=== PATIENT | female | born 1975 | race Caucasian/White ===

== ENCOUNTER 2020-05-17 09:33 | Emergency (ER) | payer OTHER, SELFPAY ==
[2020-05-17 09:41] VITALS: BP 95/61; PULSE 83; RESP 16; TEMP 36.4; O2SAT 99; BMI 22.3
--- NOTE | 2020-05-17 09:52 | ED_ITS ---
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 Complaint: extremity pain and extremity swelling Onset (ago): day(s) Pain Consistency: constant Location: right, upper extremity and elbow Severity scale (1-10): 6 Quality: aching Radiation: proximal and distal Relieving factors: nothing Exacerbating factors: range of motion Associated symptoms: Reports no associated symptoms; Deny chest pain, fever(s) or rash Review of Systems Const: Denies: fever(s), chills or body aches Eyes: Denies: change in vision or blurry vision ENMT: Denies: throat pain or nasal congestion Card: Denies: chest pain or dyspnea on exertion Resp: Denies: dyspnea, productive cough or non-productive cough GI: Denies: abdominal pain, nausea or vomiting Musc: Reports: extremity pain (Patient states that her right arm started swelling last night. Said she feels she has a pulled muscle from work. Patient has redness to the area and then also has a couple areas that she has been itching for the last month or 2 on her distal forearm that she thinks is poison nathan and she keeps itching them daily) Skin/Breast: Denies: rash Neuro: Denies: headache(s) Psych: Denies: anxiety or depression Ryland/Lymph: Denies: easy bruising [facility] ED Female Reproductive History: Date of last menstrual period: 05/17/20 Physical Exam Const: COMMON NORMALS: no acute distress, average body habitus and patient oriented x3 HENMT: COMMON NORMALS: normocephalic HEAD & SCALP: normal to inspection and normocephalic FACE & SINUS: normal facial exam Eye: COMMON NORMALS: conjunctivae normal GENERAL EYE: appearance normal, both eyes and all related structures CONJUNCTIVA: Yes conjunctivae normal Neck/C-Spine: COMMON NORMALS: no JVD Chest: COMMONS NORMALS: normal inspection of the chest Resp: COMMON NORMALS: normal respiratory effort and clear to auscultation bilaterally AUSCULTATION: clear to auscultation bilaterally Cardio: COMMON NORMALS: no JVD, regular rate and regular rhythm RATE: regular rate RHYTHM: regular rhythm GI: COMMON NORMALS: Normal to inspection, nondistended, normoactive bowel sounds present Extremity: COMMON NORMALS: full ROM RIGHT UPPER EXTREMITY: Yes upper arm, Yes elbow joint and Yes lower arm (The patient has redness erythema from the right middle forearm to the proximal mid humerus area appears to be on the lateral aspect arm is swollen hot to the touch and then on the distal forearm she has a couple areas that could resemble a psoriasis type plaque that open wound scratch appears that she has an infection/L ileitis going on distal neurovascular is intact she has full range of motion the arm) Neuro: COMMON NORMALS: patient oriented x3 Course Vital Signs: Vital signs: Vital Signs Temperature 97.6 F 05/17/20 09:41 Pulse Rate 83 05/17/20 09:41 Respiratory Rate 16 05/17/20 09:41 Blood Pressure 95/61 05/17/20 09:41 Pulse Oximetry 99 05/17/20 09:41 MDM - Extremity (Nontraumatic) MDM Narrative: Medical decision making narrative: She might have a pulled muscle or tendinitis in her right arm but I suspect a cellulitis based on clinical presentation will treat for cellulitis and put her off work for a few days allowed to heal up Is a possibility she had a reaction to the lidocaine patch but that was only on the upper arm and not down to the mid of the forearm but it was wrapped with an Geoff wrap on top of the lidocaine patch Discharge Plan Discharge Patient Disposition: Home Clinical Impression: Cellulitis Qualifiers: Site of cellulitis: extremity Site of cellulitis of extremity: upper extremity Laterality: right Qualified Code(s): L03.113 - Cellulitis of right upper limb Condition: Stable Prescriptions: New tramadol 50 mg tablet 50 mg PO Q6H PRN (Reason: pain) Qty: 14 RF: 0 Bactrim DS 800-160 mg tablet 1 tab PO BID 10 Days Qty: 20 RF: 0 Discharge Diet: Usual diet Discharge Activity: Increase activity as tolerated Patient Instructions: Cellulitis (ED) Activity Restrictions/Additional Instructions: Follow-up with medical provider as directed. Take medications as prescribed. Return to the ER or your medical provider if condition worsens. Please read and understand discharge instructions. If any questions ask please. Stand Alone Forms: Work/School Release Coding Level of Care Code ED Clinical Marketing Manager for Chg Fwd Exam Comprehensive
[2020-05-17] MEDS: HYDROcodone-acetaminophen 5-325 mg Tablet 1 TAB PO (10:29)
[2020-05-17] MEDS: water for injection-sterile 10 ML 2.1 ML (10:30)
[2020-05-17] MEDS: cefTRIAXone 1,000 mg SDV 1000 MG IM (10:30)
[2020-05-17 10:32] VITALS: BP 93/66; PULSE 83; RESP 18; O2SAT 99
[2020-05-17 10:59] VITALS: BP 96/66; PULSE 81; RESP 17; O2SAT 99
== END 2020-05-17 10:50 | disposition home or self-care (01) ==
PROVIDERS: Emergency Provider Nurse Practitioner Family
DX: L03.113 Cellulitis of right upper limb (principal)
CPT/HCPCS: 12345; 96372; 99281; 99283; J0696

== ENCOUNTER 2020-06-01 15:18 | Emergency (ER) | payer SELFPAY ==
--- NOTE | 2020-06-01 15:28 | ED_ITS ---
HPI - Skin/Abscess/Foreign Bdy General: Chief complaint: Skin/Abscess/Foreign Body Stated complaint: RIGHT ARM WOUND Time Seen by Provider: 06/01/20 15:20 History of Present Illness: HPI narrative: 44-year-old female patient presents to the emergency department with right antecubital swelling due to abscess. She reports previous abscess with use of antibiotics, reports abscess was drained, no packing placed. Reports draining stopped and now has increased in swelling. She denies fever chills. She reports pain with bending movement of the right arm at the antecubital space. Reports last dose of clindamycin this morning. complaint: abscess/boil (Right AC) Onset (ago): day(s) (2) Tetanus up to date: yes Location: RUE Severity: mild Severity scale (1-10): 3 Quality: aching Pain Consistency: intermittent Relieving factors: immobilization Exacerbating factors: movement Context: none Associated symptoms: Reports no associated symptoms; Deny chills, fever(s), nausea or vomiting Treatments prior to arrival: antibiotic (Has now completed antibiotics) Review of Systems General: Reports: 10 or more systems reviewed and unremarkable except in HPI and below Const: Denies: fever(s), chills or diaphoresis Eyes: Denies: blurry vision or eye redness ENMT: Denies: throat pain, dental pain or disequilibrium Card: Denies: chest pain, palpitations or irregular heart rhythm Resp: Denies: dyspnea, productive cough, non-productive cough or wheezing GI: Denies: abdominal pain, nausea or vomiting : Denies: difficulty voiding or dysuria Musc: Denies: back pain Skin/Breast: Reports: erythema, skin tenderness (Right AC) and non-healing lesions (Right antecubital); Denies: rash or pruritus Neuro: Denies: headache(s), weakness in extremities or behavioral changes Ryland/Lymph: Denies: easy bruising PFSH ED PFSH: Social History Smoking and tobacco status: never smoked Female Reproductive History: Date of last menstrual period: 05/17/20 Physical Exam Const: COMMON NORMALS: no acute distress, patient oriented x3, healthy appearing and alert GENERAL APPEARANCE: cooperative, comfortable and well hydrated HENMT: COMMON NORMALS: normocephalic, Normal external nose present and moist oral mucous membranes HEAD & SCALP: normocephalic NOSE: Normal external nose present Eye: COMMON NORMALS: Equal, round and reactive pupils present and EOMs intact bilaterally GENERAL EYE: appearance normal, both eyes and all related structures PUPIL: Yes Equal, round and reactive pupils present Neck/C-Spine: COMMON NORMALS: full ROM and no lymphadenopathy GENERAL: Yes normal visual inspection and Yes trachea midline CERVICAL SPINE: Yes cervical ROM normal Lymph: LYMPHATIC: no lymphadenopathy noted Chest: COMMONS NORMALS: normal inspection of the chest Resp: COMMON NORMALS: normal respiratory effort and clear to auscultation bilaterally EFFORT & INSPECTION: Yes able to speak in complete sentences AUSCULTATION: clear to auscultation bilaterally Cardio: COMMON NORMALS: regular rhythm, S1 normal heart sound present, S2 normal heart sound present and Peripheral pulses 2+ throughout RHYTHM: regular rhythm HEART SOUNDS: S1 normal heart sound present and S2 normal heart sound present PERIPHERAL PULSES: Peripheral pulses 2+ throughout GI: COMMON NORMALS: Soft to palpation and non-tender INSPECTION: Yes normal to inspection PALPATION: Yes Soft to palpation : COMMON NORMALS: Yes no CVA tenderness BLADDER/KIDNEY EXAM: Yes no CVA tenderness Back/Pelvis: COMMON NORMALS: no CVA tenderness and thoracic and lumbar spine normal to inspection Extremity: COMMON NORMALS: normal to inspection and capillary refill normal Neuro: COMMON NORMALS: patient oriented x3 and no focal motor deficits SENSORIUM/ORIENTATION: Yes alert Psych: COMMON NORMALS: mental status grossly normal, Normal thought process present and cooperative ACTIVITY/MOTOR BEHAVIOR: Yes appropriate eye contact THOUGHT PROCESS: Normal thought process present Skin: COMMON NORMALS: turgor normal GENERAL SKIN EXAM: turgor normal WOUNDS: Yes wounds noted (Abscess to the right antecubital area, 3 cm x 3 cm indurated with fluctuance) OTHER: Negative cellulitis, negative tracking, negative lymphadenitis Procedures Abscess I/D Site: upper extremity (Right antecubital) Side (if applicable): right Local Anesthetic: lidocaine 1% and with epi Amount of anesthesia used (mL): 3 Technique: incised with #11 blade (with sero-purulent drainage) Amount of fluid expressed (mL): 10 Irrigation: Yes Packing used?: plain Course Vital Signs: Vital signs: Vital Signs Temperature 98.2 F 06/01/20 15:33 Pulse Rate 109 H 06/01/20 16:10 Respiratory Rate 16 06/01/20 16:10 Blood Pressure 115/81 06/01/20 16:10 Pulse Oximetry 99 06/01/20 16:10 Discharge Plan Discharge Patient Disposition: Home Clinical Impression: MRSA cellulitis Abscess of skin or subcutaneous tissue Qualifiers: Site of cutaneous abscess: extremity Site of cutaneous abscess of extremity: upper extremity Laterality: right Qualified Code(s): L02.413 - Cutaneous abscess of right upper limb Condition: Stable Prescriptions: New Bactrim DS 800-160 mg tablet 1 tab PO BID 7 Days Qty: 14 RF: 0 Discontinued clindamycin HCl 300 mg capsule 300 mg PO TID Qty: 20 RF: 0 No Action mupirocin 2 % ointment 1 applic TOPICAL BID Qty: 15 RF: 0 tramadol 50 mg tablet 50 mg PO Q6H PRN (Reason: pain) Qty: 14 RF: 0 Discharge Orders: Discharge Order (Routine); Ordered 06/01/20 Ordered By: Josey Huang Discharge Diet: Usual diet Discharge Activity: Resume usual activity Patient Instructions: Methicillin Resistant Staphylococcus Aureus (ED), Abscess Incision and Drainage (ED) Activity Restrictions/Additional Instructions: Stop clindamycin Take Bactrim DS 1 p.o. twice daily until all gone May remove packing on Friday, keep covered, drainage is to be expected Follow-up with your primary care provider next week for recheck, social media assistant will be contacting you for primary care follow-up. If you develop tracking, red streaking up your arm, you will need to return to the emergency department for further evaluation You develop fever chills nausea vomiting, inability to keep fluids down, you will need to return for evaluation Wash hands after touching the area Discharge Date/Time: 06/01/20 16:11 Coding Level of Care Code ED Order Fulfillment Specialist for Chg Fwd Exam Comprehensive
[2020-06-01 15:33] VITALS: BP 116/85; PULSE 98; RESP 16; TEMP 36.8; O2SAT 98; BMI 23.1
[2020-06-01 15:42] VITALS: PULSE 105; RESP 16; O2SAT 99
[2020-06-01 16:10] VITALS: BP 115/81; PULSE 109; RESP 16; O2SAT 99
--- NOTE | 2020-06-06 15:53 | DCPLANNER ---
mine engineering manager had message to speak with patient about getting established with a primary care physician. mine engineering manager unable to speak with patient at this time, a voicemail was left for patient to return director of casework phone call.
== END 2020-06-01 16:11 | disposition home or self-care (01) ==
PROVIDERS: Emergency Provider Nurse Practitioner Family
DX: L02.413 Cutaneous abscess of right upper limb (principal); L03.113 Cellulitis of right upper limb; B95.62 Methicillin resistant Staphylococcus aureus infection as the cause of diseases classified elsewhere
CPT/HCPCS: 10060; 12345; 99283

== ENCOUNTER 2020-06-09 16:38 | Emergency (ER) | payer SELFPAY ==
[2020-06-09 16:41] VITALS: BP 98/68; PULSE 83; RESP 18; TEMP 37.1; O2SAT 99; BMI 22.3
--- NOTE | 2020-06-09 17:18 | W.ED.WOUNDLC ---
HPI - Wound/Laceration General: Chief Complaint: Wound/Laceration Stated Complaint: abcess Time Seen by Provider: 06/09/20 17:18 History of Present Illness: HPI narrative: Patient is a 44-year-old female comes to the ED with an abscess on her right elbow. Patient says abscess started approximately 3-1/2 weeks ago. Patient had it lanced back on June 01 and since has been put on 2 rounds of Bactrim and 1 round of clindamycin. She took her last dose of Bactrim today. Still has a pea size abscess on right elbow. She does say that it is greatly improved since it was first treated. The erythema or on her right arm has completely went away. And the pain of it has decreased dramatically. Associated symptoms: Denies chills, fever(s), nausea or vomiting Review of Systems Const: Denies: fever(s), chills or fatigue Eyes: Denies: change in vision or eye discomfort ENMT: Denies: throat pain, odynophagia, nasal discharge or nasal congestion Card: Denies: chest pain, palpitations, edema, swelling of feet/ankles, dyspnea on exertion or orthopnea Resp: Denies: dyspnea, productive cough or non-productive cough GI: Denies: abdominal pain, nausea, vomiting, diarrhea, constipation or hematochezia : Denies: flank pain, dysuria or hematuria Musc: Denies: neck pain, back pain or extremity swelling Skin/Breast: Reports: new lesions (Abscess on right elbow); Denies: rash Neuro: Denies: headache(s), numbness in extremities or weakness in extremities PFS ED PFSH: Social History Smoking and tobacco status: never smoked Female Reproductive History: Date of last menstrual period: 05/17/20 Physical Exam Const: COMMON NORMALS: no acute distress, patient oriented x3 and alert GENERAL APPEARANCE: cooperative and comfortable HENMT: COMMON NORMALS: normocephalic HEAD & SCALP: normocephalic MOUTH: Normal oral and palatal mucosa present THROAT: posterior oropharynx normal and uvula midline Neck/C-Spine: COMMON NORMALS: supple GENERAL: Yes normal visual inspection Resp: COMMON NORMALS: normal respiratory effort, No retractions, No use of accessory muscles and clear to auscultation bilaterally AUSCULTATION: clear to auscultation bilaterally Cardio: COMMON NORMALS: regular rate, regular rhythm, S1 normal heart sound present, S2 normal heart sound present, No gallops present (Cardio), No clicks present (Cardio), No murmurs present (Cardio) and Peripheral pulses 2+ throughout RATE: regular rate RHYTHM: regular rhythm HEART SOUNDS: S1 normal heart sound present and S2 normal heart sound present PERIPHERAL PULSES: Peripheral pulses 2+ throughout GI: COMMON NORMALS: Normal to inspection, nondistended, normoactive bowel sounds present, Soft to palpation, non-tender and no masses PALPATION: Yes Soft to palpation : COMMON NORMALS: Yes no CVA tenderness BLADDER/KIDNEY EXAM: Yes no CVA tenderness Back/Pelvis: COMMON NORMALS: no CVA tenderness Extremity: NARRATIVE EXTREMITY EXAM: Patient has small approximately 1 cm abscess on right elbow. Is nontender, fluctuant and has a scar from being incised recently. No erythema warmth around abscess. GENERAL: Yes normal exam except as noted Neuro: COMMON NORMALS: patient oriented x3 and moves all extremities SENSORIUM/ORIENTATION: Yes alert Skin: NARRATIVE SKIN EXAM: Patient has small approximately 1 cm abscess on right elbow. Is nontender, fluctuant nodule and has a scar from being incised recently. No active purulent drainage seen. no erythema warmth around abscess. GENERAL SKIN EXAM: dry skin Procedures Abscess I/D Site: upper extremity Side (if applicable): right Local Anesthetic: lidocaine 1% and with epi Amount of anesthesia used (mL): 10 Technique: incised with #11 blade Amount of fluid expressed (mL): 1 (All blood, no purulent drainage.) Irrigation: No Packing used?: none Course Vital Signs: Vital signs: Vital Signs Temperature 98.8 F 06/09/20 16:41 Pulse Rate 68 06/09/20 18:59 Respiratory Rate 18 06/09/20 18:59 Blood Pressure 128/67 06/09/20 18:59 Pulse Oximetry 96 06/09/20 18:59 MDM - Wound/Laceration MDM Narrative: Medical decision making narrative: Patient is a 44-year-old female comes to the ED with an abscess on right elbow. She has been treated for this previously on June 01. She is been on 1 round of clindamycin and 2 rounds of Bactrim. Exam shows 1 cm fluctuant nodule with no surrounding erythema or warmth. No active purulent drainage seen. I performed an I&D and only blood came out and no purulent drainage. Patient was discharged and put on 5 more days of Bactrim. Return to ED precautions given. Follow-up with PCP in 7 to 10 days. Patient understood and agreed with plan. Discharge Plan Discharge Patient Disposition: Home Clinical Impression: Abscess Condition: Stable Prescriptions: New Bactrim DS 800-160 mg tablet 1 tab PO BID 5 Days Qty: 10 RF: 0 No Action mupirocin 2 % ointment 1 applic TOPICAL BID Qty: 15 RF: 0 tramadol 50 mg tablet 50 mg PO Q6H PRN (Reason: pain) Qty: 14 RF: 0 Discharge Orders: Discharge Order (Routine); Ordered 06/09/20 Ordered By: Leandro Pierre Discharge Diet: Regular Discharge Activity: Resume usual activity Patient Instructions: Abscess Incision and Drainage (ED), Abscess (ED) Activity Restrictions/Additional Instructions: Follow-up with medical provider as directed in 7-10 days. Take medications as prescribed. Return to the ER or your medical provider if condition worsens. Please read and understand discharge instructions. If any questions, please ask. Discharge Date/Time: 06/09/20 19:01 Coding Level of Care Code ED Dump Motor Operator for Satnam Ford Exam Comprehensive
--- NOTE | 2020-06-09 18:57 | PC.NURSE ---
ABSCESS TO RIGHT AC LANCED AND DRAINED PER JOSE FERNÁNDEZ SITE ENGINEER. PACKED WITH 1 INCH PACKING STRIP, COVERED WITH 4X4'S ET SECURED WITH TAPE.
[2020-06-09 18:59] VITALS: BP 128/67; PULSE 68; RESP 18; O2SAT 96
== END 2020-06-09 19:01 | disposition home or self-care (01) ==
PROVIDERS: Emergency Provider Physician Assistant
DX: L02.413 Cutaneous abscess of right upper limb (principal)
CPT/HCPCS: 10060; 12345; 99281; 99283

== ENCOUNTER → 2020-06-15 14:51 | Outpatient (BNVA) | payer SELFPAY | PROVIDERS: Visit Provider Family Medicine Adult Medicine | DX: R53.83 Other fatigue (principal) | CPT/HCPCS: 80053; 84439; 84443; 85007; 85027 ==

== ENCOUNTER 2021-11-16 12:52 | Emergency (ER) | payer SELFPAY ==
--- NOTE | 2021-11-16 12:57 | PC.NURSE ---
pt arrives via [facility] for a blood draw for DWI investigation
--- NOTE | 2021-11-16 13:04 | ED_ITS ---
HPI - Recheck/Abnormal Lab/Rx General: Chief Complaint: Recheck/Abnormal Lab/Rx Stated Complaint: BLOOD DRAW Time Seen by Provider: 11/16/21 12:57 Source: patient and police Mode of arrival: other (police) Limitations: no limitations History of Present Illness: Patient is a 46-year-old female presents to the ED today for lab draw/drug testing due to suspicion while driving under the influence. Patient arrives in police custody and the prec[place] police sergeant tells me she was pulled over for dangerous and reckless driving. He had a suspicion that she was under the influence of drugs. Patient reportedly told the officer that she had used methamphetamine a few hours prior. Patient has no physical complaints at this time. Plan will be for patient to be released back into police custody. complaint: other (lab draw/blood testing) Review of Systems General: Reports: 10 or more systems reviewed and unremarkable except in HPI and below PFSH ED PFSH: Medical History Decreased glomerular filtration rate (GFR) Surgical History Hx of tubal ligation Family History Other Cancer Social History Smoking and tobacco status: never smoked Alcohol intake: current Alcohol intake frequency: few times a month Female Reproductive History: Date of last menstrual period: 05/17/20 Physical Exam Narrative: EXAM NARRATIVE: Patient has no physical complaints at this time. Const: COMMON NORMALS: no acute distress, patient oriented x3, no limitations and alert GENERAL APPEARANCE: cooperative ORIENTATION/CONSCIOUSNESS: Yes awake, Yes oriented to person, Yes oriented to place and Yes oriented to time Neuro: COMMON NORMALS: patient oriented x3 SENSORIUM/ORIENTATION: Yes alert, Yes oriented to person, Yes oriented to place and Yes oriented to time MDM - Recheck/Abnormal Lab/Rx Medical Decision Making Patient was arrested for reckless and endanger driving. There was no car accident. Patient has no physical complaints at this time. Lab draw completed and patient will be released back into police custody. Discharge Plan Discharge Patient Disposition: Home Clinical Impression: Blood drug testing for medicolegal reasons Condition: Stable Prescriptions: No Action methylprednisolone [Medrol (Joey)] 4 mg tablets,dose pack See Rx Instructions PO PER PKG DIR 5 Days Qty: 21 0RF Rx Instructions: PO PER PKG DIR Discharge Orders: Discharge ED (Routine); Ordered 11/16/21 Ordered By: Ivett Echevarria Coding Level of Care Code ED Construction Rigger for Satnam Ford
== END 2021-11-16 13:15 | disposition home or self-care (01) ==
PROVIDERS: Emergency Provider Physician Assistant
DX: Z02.83 Encounter for blood-alcohol and blood-drug test (principal)
CPT/HCPCS: 99281

== ENCOUNTER 2022-03-27 22:15 | Emergency (ER) | payer SELFPAY ==
--- NOTE | 2022-03-27 22:17 | XRR_ITS ---
PROCEDURE INFORMATION: Exam: XR Chest Exam date and time: 03/27/2022 11:10 PM Age: 46 years old Clinical indication: Shortness of breath; Additional info: SOB TECHNIQUE: Imaging protocol: Radiologic exam of the chest. Views: 1 view. COMPARISON: No relevant prior studies available. FINDINGS: Lungs: There are normal lung volumes without interstitial or airspace opacities. Pleural spaces: There are no pleural effusions or pneumothorax. Heart/Mediastinum: The heart size is normal. The pulmonary vasculature is normal. There is a mildly tortuous thoracic aorta. The trachea is in the midline. Bones/joints: No acute abnormalities. XR/XR chest 1V portable [id number] IMPRESSION: No AP view chest radiographic evidence of acute cardiopulmonary disease.
[2022-03-27 22:30] VITALS: BP 112/83; PULSE 98; RESP 20; TEMP 36.8; O2SAT 98
--- NOTE | 2022-03-27 23:23 | ED_ITS ---
HPI - COVID General: Chief Complaint: COVID symptoms Stated Complaint: SOB, Covid + Time Seen by Provider: 03/27/22 23:23 History of Present Illness: 46-year-old female comes in today for complaints of positive COVID test at work from [facility]. Patient reports feeling ill last night today having shortness of breath. Patient appears mildly unwell but not toxic. Patient appears in no acute distress. Patient appears in no pain. COVID 19 common symptoms: positive dyspnea and headache(s) COVID Results: No Data to Display Review of Systems Const: Reports: malaise Resp: Reports: dyspnea Neuro: Reports: headache(s) PFSH ED PFSH: Medical History Decreased glomerular filtration rate (GFR) Surgical History Hx of tubal ligation Family History Other Cancer Social History Smoking and tobacco status: never smoked Alcohol intake: current Alcohol intake frequency: few times a month Female Reproductive History: Date of last menstrual period: 05/17/20 Physical Exam Const: COMMON NORMALS: alert HENMT: NOSE: Nasal discharge present Neck/C-Spine: COMMON NORMALS: no meningeal signs Resp: COMMON NORMALS: normal respiratory effort and clear to auscultation bilaterally AUSCULTATION: clear to auscultation bilaterally Cardio: COMMON NORMALS: regular rate RATE: regular rate Extremity: COMMON NORMALS: normal to inspection Neuro: SENSORIUM/ORIENTATION: Yes alert MENINGEAL SIGNS: Yes no meningeal signs Skin: COMMON NORMALS: no rashes or lesions noted GENERAL SKIN EXAM: no rashes or lesions noted Course Vital Signs: Vital signs: Vital Signs Temperature 98.3 F 03/27/22 22:30 Pulse Rate 98 03/27/22 22:30 Respiratory Rate 20 H 03/27/22 22:30 Blood Pressure 112/83 03/27/22 22:30 Pulse Oximetry 98 03/27/22 22:30 MDM - COVID Medical Decision Making 46-year-old female comes in today for complaints of shortness of breath and positive COVID-19 test. On exam patient has air movement throughout lung green. Vital signs are normal. No acute distress is noted. Patient does have some nasal discharge. Differential diagnosis includes COVID-19, pneumonia, bronchitis. Chest x-ray noted no obvious pneumonia. Patient was given albuterol inhaler to use for cough and shortness of breath. Patient was recommended drink plenty of fluids and follow-up with primary care or return to the ER for worsening symptoms. Lab Data No Data to Display Discharge Plan Discharge Patient Disposition: Home Clinical Impression: COVID-19 Condition: Stable Prescriptions: No Action methylprednisolone [Medrol (Joey)] 4 mg tablets,dose pack See Rx Instructions PO PER PKG DIR 5 Days Qty: 21 0RF Rx Instructions: PO PER PKG DIR Discharge Orders: Discharge ED (Routine); Ordered 03/27/22 Ordered By: German Cervantes Discharge Diet: Usual diet Discharge Activity: Increase activity as tolerated Patient Instructions: COVID-19 (Coronavirus Disease 2019) (ED) Activity Restrictions/Additional Instructions: Home and rest. Drink plenty of water and fluids. Use acetaminophen and ibuprofen for pain and fever. Use albuterol inhaler for shortness of breath and cough. 2 puffs every 4 hours as needed. Follow-up with primary care as needed. Return to ER for worsening symptoms such as increasing shortness of breath, inability to hold fluids down, or new concerns. Stand Alone Forms: Work/School Release Coding Level of Care Code ED Measurement And Verification Engineer for Satnam Ford
[2022-03-27 23:39] VITALS: PULSE 98; RESP 18; O2SAT 98
[2022-03-27] MEDS: albuterol 8 gm MDI 2 PUFF INHALATION (23:39)
[2022-03-27 23:44] VITALS: BP 112/80; PULSE 98; RESP 20; TEMP 36.5; O2SAT 98
== END 2022-03-27 23:45 | disposition home or self-care (01) ==
PROVIDERS: Emergency Provider Nurse Practitioner Family
DX: U07.1 COVID-19 (principal)
CPT/HCPCS: 71045; 94640; 99283; J3535

== ENCOUNTER → 2022-06-26 13:48 | Outpatient (BNVA) | payer OTHER, SELFPAY | PROVIDERS: Visit Provider Family Medicine Adult Medicine | DX: N18.2 Chronic kidney disease, stage 2 (mild) (principal) | CPT/HCPCS: 80053; 85025 ==

== ENCOUNTER → 2024-10-07 12:26 | Outpatient (BNVA) | payer OTHER, SELFPAY | PROVIDERS: Visit Provider Family Medicine | DX: R05.9 Cough, unspecified (principal); J40 Bronchitis, not specified as acute or chronic | CPT/HCPCS: 87400 ==

== ENCOUNTER 2025-01-29 19:13 | Emergency (ER) | payer OTHER, MEDICAID, SELFPAY ==
[2025-01-29 19:35] VITALS: BP 123/87; PULSE 94; RESP 16; TEMP 36.6; O2SAT 99; BMI 22.4
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
[2025-01-29] MEDS: lidocaine-epi 1% 20 mL INJ INJECTION (21:49)
[2025-01-29] MEDS: ketorolac 30 mg/mL INJ IM (22:03)
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
== END 2025-01-29 23:07 | disposition home or self-care (01) ==
PROVIDERS: Emergency Provider Emergency Medicine
DX: S01.81XA Laceration without foreign body of other part of head, initial encounter (principal); N18.2 Chronic kidney disease, stage 2 (mild); W25.XXXA Contact with sharp glass, initial encounter; V86.59XA Driver of other special all-terrain or other off-road motor vehicle injured in nontraffic accident, initial encounter; Z79.899 Other long term (current) drug therapy; Z88.5 Allergy status to narcotic agent
CPT/HCPCS: 12013; 70450; 71045; 72125; 96372; 99284; J1885; J9999